=== PATIENT | female | born 1995 | race Caucasian/White ===

== ENCOUNTER 2018-10-15 01:58 | Inpatient (IN) | payer MEDICAID, OTHER ==
[2018-10-15] MEDS ORDERED: AMPICILLIN/NS 2 GM/100 ML 0 GM/0 ML BAG IV ONE (02:46)
[2018-10-15] MEDS ORDERED: LACTATED RINGERS 1,000 ML ONE (02:46)
[2018-10-15] MEDS ORDERED: PITOCin/NS 20 UNIT/1000ML DRIP 20,000 MILLIUNITS/1,000 ML BAG IV ONE (02:54)
[2018-10-15] MEDS: PITOCin/NS 20 UNIT/1000ML DRIP 20 UNITS/1,000 ML BAG IV SCH ×2 (03:05→04:01)
[2018-10-15] MEDS ORDERED: XYLOCAINE 2% INFILTRATI ONE (03:11)
[2018-10-15] MEDS ORDERED: MINERAL OIL PO PRN (03:11)
--- NOTE | 2018-10-15 03:17 | History and Physical Report ---
History of Present Illness Date of examination: 10/15/18 Date of admission: 10/15/18 02:39 Chief complaint: laboring History of present illness: patient of [facility] arrived to unit in active labor Records not available at this time for review EDC 10/24/18 , hx normal uncomplicated vaginal births Pt reports Anemia as only medical hx denies surgical hx denies STIs denies drugs use/ETOH/Smoking. 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 denies: smoking, alcohol abuse, prescription drug abuse, IV drug use - Obstetrical History Expected Date of Delivery: 10/24/18 Actual Gestation: 38 Week(s) 5 Day(s) : 3 Para: 2 Hx # Term Pregnancies: 2 Number of Pregnancies: 0 Spontaneous Abortions: 0 Induced : 0 Number of Living Children: 2 Medications and Allergies Allergies Allergy/AdvReac Type Severity Reaction Status Date / Time No Known Allergies Allergy Unverified 10/15/18 02:13 Review of Systems All systems: negative - Vital Signs Vital signs: Vital Signs Pulse BP 64 132/72 10/15/18 02:18 10/15/18 02:18 Temp Pulse Resp BP Pulse Ox 98.0 F 70 18 140/71 10/15/18 02:43 10/15/18 02:43 10/15/18 02:43 10/15/18 02:43 - Physical Exam Breasts: Positive: normal, Cardiovascular: Regular rate Lungs: Positive: Clear to auscultation, Normal air movement Abdomen: Positive: normal appearance, soft Genitourinary (Female): Positive: normal external genitalia, normal perenium Vulva: both: normal Vagina: Positive: normal moisture Anus/Rectum: Positive: normal perianal skin Extremities: Positive: normal Deep Tendon Reflex Grade: Normal +2 - Obstetrical Uterine Contraction Monitor Mode: External Cervical Dilatation: 10 (SROM Mec fluid) Cervical Effacement Percentage: 100 station: +3 Results All other labs normal. Assessment and Plan 23y/o @ 38+5 weeks arrived to L&D in active labor, receives care from [facility]. records not available for review. hx per patient, seems to be a good historian. Pt gives hx of anemia, + GBS. Hx of rapid labors - delivered last baby in car on way to hospital. Pt arrived @ 02:34 and delivered @ 02:50am with REMEDIOS saavedra. I arrived after delivery of baby, delivered placenta. - Patient Problems (1) 38 weeks gestation of Current Visit: No Status: Acute (2) GBS (group B Streptococcus carrier), +RV culture, currently Current Visit: No Status: Acute Plan to address problem: Pt reports + GBS not treated due to precip delivery (3) Anemia Current Visit: No Status: Acute Qualifiers: Anemia type: iron deficiency Plan to address problem: per patient, just started on FE by provider
--- NOTE | 2018-10-15 03:26 | Procedure Note ---
OB Delivery Note - Delivery Date of Delivery: 10/15/18 (Precip delivery, female 7#3) Sap Ppm Consultant: MIGUEL CARCAMO Estimated blood loss: 100cc - Vaginal Delivery presentation: vertex Delivery position: OA Intrapartum events: precipitous labor- <3hr (delivered 16 minutes after arrival to unit) Delivery induction: none Delivery monitor: external FHT, external uterine Route of delivery: Delivery placenta: spontaneous Delivery cord: 3 umbilical vessels Episiotomy: none Delivery laceration: none Anesthesia: none Delivery comments: pt precipitously delivered female over intact perineum. 3 vessel cord clamped and cut. Cord blood collected by RN. Pt doing Skin to skin and upon my arrival. Placenta delivered intact and complete, pitocin to IVF. no lacerations to repair. EBL 100. Apgars 8/9, wt 7#3oz. mother and infant doing well. - A at 1 minute: 8 at 5 minutes: 9 Gender: Female (7#3oz)
[2018-10-15 03:36] LABS: Hematocrit 32.2 % (30.3-42.9); Mean Corpuscular HGB Conc 31 % (30-34); Platelet Count 252 K/mm3 (140-440); Red Blood Count 4.99 M/mm3 (3.65-5.03)
[2018-10-15 03:58] LABS: Mean Corpuscular Volume 65 fl (79-97); Red Cell Distribution Width 20.7 % (13.2-15.2)
[2018-10-15] MEDS ORDERED: LACTATED RINGERS 1,000 ML IV SCH (04:00)
[2018-10-15 04:58] LABS: Hepatitis C Virus Antibody Non-Reactive (NonReactive)
[2018-10-15] MEDS ORDERED: TYLENOL PO PRN (05:16)
[2018-10-15] MEDS ORDERED: DERMOPLAST TP PRN (05:16)
[2018-10-15] MEDS ORDERED: ZOFRAN IV PRN (05:16)
[2018-10-15] MEDS ORDERED: TUCKS PAD TP PRN (05:16)
[2018-10-15] MEDS ORDERED: BENADRYL PO PRN (05:16)
[2018-10-15] MEDS ORDERED: PITOCin/NS 20 UNIT/1000ML DRIP 20 UNITS/1,000 ML BAG IV SCH (05:16)
[2018-10-15] MEDS ORDERED: MILK OF MAGNESIA PO PRN (05:16)
[2018-10-15] MEDS ORDERED: LANSINOH TP PRN (05:16)
[2018-10-15] MEDS ORDERED: SODIUM CHLORIDE FLUSH SYRINGE 10 ML IV NR (05:16)
[2018-10-15] MEDS ORDERED: DULCOLAX PR PRN (05:16)
[2018-10-15] MEDS ORDERED: PHENERGAN PO PRN (05:16)
[2018-10-15] MEDS: IBUPROFEN PO SCH ×3 (06:20→18:00)
[2018-10-15] MEDS: PRENATAL VITAMIN PO SCH (10:24)
[2018-10-15] MEDS: FEOSOL PO SCH ×2 (10:24→22:21)
[2018-10-15] MEDS: COLACE PO SCH ×2 (10:24→22:21)
[2018-10-15 15:38] LABS: Hematocrit 27.7 % (30.3-42.9); Hemoglobin 8.8 gm/dl (10.1-14.3)
[2018-10-16] MEDS: IBUPROFEN PO SCH ×4 (05:46→18:11)
[2018-10-16] MEDS ORDERED: BOOSTRIX IM ONE (06:00)
--- NOTE | 2018-10-16 07:10 | Discharge Summary ---
Providers - Providers Date of Admission: 10/15/18 02:39 Date of discharge: 10/16/18 (pt agrees with d/c) Attending physician: YAYO DAMON Primary care physician: YAYO DAMON Hospitalization Reason for admission: active labor, IUP at term Delivery: Episiotomy: none Laceration: none Incision: normal Other procedures: none complications: none Discharge diagnosis: IUP at term delivered [place] baby: female Hospital course: uncomplicated vaginal delivery Pt w/o complaints VSS FF below umb Lochia scant Perineum intact H&H 01/20 No s/sx of anemia. Doing well s/p vag delivery P: d/c today with instructions Pt will f/u with [facility] for her PP care. Condition at discharge: Good Disposition: DC-01 TO HOME OR SELFCARE - Discharge Diagnoses (1) (normal spontaneous vaginal delivery) Status: Acute Comment: RTO 4 weeks PP care Plan - Discharge Medications Prescriptions: Ibuprofen [Motrin 800 MG tab] 800 mg PO TID PRN #30 tablet PRN Reason: Pain - Provider Discharge Summary Activity: routine, no sex for 6 weeks, no heavy lifting 4 weeks, no strenuous exercise Diet: routine Instructions: routine Additional instructions: [] Smoking cessation referral if applicable(refer to patient education folder for contact #) [] Refer to [facility]'s [facility] Booklet Call your doctor immediately for: * Fever > 100.5 * Heavy vaginal bleeding ( >1 pad per hour) * Severe persistent headache * Shortness of breath * Reddened, hot, painful area to leg or breast * Drainage or odor from incision. * Keep incision clean and dry at all times and follow doctor's instructions regarding bathing/showering - Follow up plan Follow up: YAYO DAMON MD [Primary Care Provider] - 6 Weeks (Congratulations! Please call [facility] to schedule your visit in 4-6 weeks. Take Motrin/ibuprofen for cramping/pain. Call with any concerns. [facility]: [phone] if you have concerns.)
[2018-10-16] MEDS: FEOSOL PO SCH ×2 (10:40→21:54)
[2018-10-16] MEDS: COLACE PO SCH ×2 (10:40→21:54)
[2018-10-16] MEDS: PRENATAL VITAMIN PO SCH (10:40)
[2018-10-17] MEDS: IBUPROFEN PO SCH ×2 (00:27→06:44)
[2018-10-17] MEDS: FEOSOL PO SCH (09:55)
[2018-10-17] MEDS: COLACE PO SCH (09:55)
[2018-10-17] MEDS: PRENATAL VITAMIN PO SCH (09:55)
[2018-10-17 10:00] VITALS: BP 112/76
== END 2018-10-17 10:10 | disposition home or self-care (01) | DRG 807 ==
LOC: TRG 01:58 → LD 02:39 → OB 04:42
PROVIDERS: ADMIT Obstetrics & Gynecology; ATTEND Obstetrics & Gynecology
PROC: 10E0XZZ Delivery of Products of Conception, External Approach (ICD-10-PCS; principal; 2018-10-15)
DX: O62.3 Precipitate labor (principal); Z37.0 Single live birth; O99.824 Streptococcus B carrier state complicating childbirth; O99.02 Anemia complicating childbirth; D50.0 Iron deficiency anemia secondary to blood loss (chronic); Z3A.38 38 weeks gestation of pregnancy
CPT/HCPCS: 36415; 85014; 85018; 85027; 86592; 86706; 86762; 86803; 86850; 86900; 86901; 87806; 90471; 90715; G0378; A6250; J0290; J2590; J7120